=== PATIENT | male | born 1980 ===

== ENCOUNTER 2020-09-27 07:38 | Emergency (ER) | payer OTHER ==
[~2020-09-27] VITALS: Ht 205.7 cm; Wt 106.3 kg
[2020-09-27 07:44] VITALS: BP 121/75
--- NOTE | 2020-09-27 09:34 | NUR ---
operations specialists note: Pt to room from lobby.
--- NOTE | 2020-09-27 09:56 | NUR ---
PT C/O FATIGUE, NAUSEA, SORE/DRY THROAT, SOB, "I THINK IM LOSING MY SENSE OF TASTE AND SMELL.", HOT FLASHES, AND STATES HES BEEN AROUND ASSUMED COVID + PEOPLE
== END 2020-09-27 10:41 | disposition home or self-care (01) ==
LOC: ED 08:53
DX: J00 Acute nasopharyngitis [common cold] (principal); Z20.822 Contact with and (suspected) exposure to COVID-19; R94.31 Abnormal electrocardiogram [ECG] [EKG]
CPT/HCPCS: 71045; 87635; 93005; 99285

== ENCOUNTER 2020-09-29 11:49 | Emergency (ER) | payer OTHER ==
[~2020-09-29] VITALS: Ht 205.7 cm; Wt 103.9 kg
[2020-09-29 12:01] VITALS: BP 125/88
== END 2020-09-29 13:08 | disposition home or self-care (01) ==
LOC: ED 13:06
DX: J06.9 Acute upper respiratory infection, unspecified (principal); Z20.822 Contact with and (suspected) exposure to COVID-19; B34.9 Viral infection, unspecified; F17.200 Nicotine dependence, unspecified, uncomplicated
CPT/HCPCS: 87635; 99283